=== PATIENT | male | born 1945 | race Caucasian/White ===

== ENCOUNTER 2024-07-22 10:26 | Outpatient (CLI) | payer MEDICARE, BC, SELFPAY | END 2024-07-22 10:27 | disposition home or self-care (01) | PROVIDERS: PCP Family Medicine; Visit Provider Family Medicine | DX: Z00.00 Encounter for general adult medical examination without abnormal findings (principal); I10 Essential (primary) hypertension; E78.2 Mixed hyperlipidemia | CPT/HCPCS: 80048; 80061; 84460 ==

== ENCOUNTER 2025-08-19 10:38 | Outpatient (CLI) | payer MEDICARE, BC, SELFPAY | END 2025-08-19 10:39 | disposition home or self-care (01) | LOC: FBOREF 10:39 | PROVIDERS: PCP Family Medicine; Visit Provider Family Medicine | DX: E78.2 Mixed hyperlipidemia (principal) | CPT/HCPCS: 80061 ==